=== PATIENT | female | born 1990 | race Asian ===

== ENCOUNTER 2016-03-05 13:02 | Outpatient (CLI) | payer BC, MEDICAID ==
[~2016-03-05] VITALS: Ht 5.1 cm; Wt 81.8 kg
[~2016-03-05 13:02] MED LIST: FOLIC ACID0.4 MG PO; MAGNESIUM100 MG
[2016-03-05 13:14] VITALS: BP 133/82; PULSE 83; TEMP 98.2
[2016-03-05 13:18] VITALS: BP 133/82; PULSE 83; TEMP 98.2
[2016-03-05 14:15] VITALS: BP 95/54; PULSE 71
[2016-03-06] MEDS ORDERED: PRENATAL1 TA7 PO (09:55)
== END 2016-03-05 14:36 | disposition home or self-care (01) ==
LOC: LDRO 13:02
DX: O47.1 False labor at or after 37 completed weeks of gestation (principal); Z3A.40 40 weeks gestation of pregnancy

== ENCOUNTER 2016-03-06 09:31 | Inpatient (IN) | payer BC, MEDICAID ==
[2016-03-06] VITALS (21 sets, daily range): BP systolic 91–136; BP diastolic 46–77; PULSE 66–99; TEMP 97.1–99.1
[~2016-03-06] VITALS: Ht 157.5 cm; Wt 80.5 kg
[2016-03-06] MEDS ORDERED: PRENATAL1 TA7 PO (09:55)
[2016-03-06 10:47] LABS: BASO % 0.2 % (0.0-2.0); EOS % 0.1 % (0-4.0); GRAN % 80.5 % (42.2-75.2); HEMATOCRIT 38.2 % (37.0-47.0); LYMPH # 1.4 (1.2-3.4); LYMPH % 14.5 % (20.0-51.0); MEAN CELL VOLUME 83 fl (80.0-100.0); MEAN CORPUSCULAR HEMOGLOBIN 28 pg (27.0-31.0); MEAN CORPUSCULAR HGB CONC 34 g/dl (33.0-37.0); MEAN PLATELET VOLUME 11.1 fl (7.4-10.4); MONO # 0.4 (0.1-0.6); MONO % 4.5 % (1.7-9.3); PLATELET COUNT 212 K/mm3 (130-400); WHITE BLOOD COUNT 9.9 K/mm3 (4.8-10.8)
[2016-03-07 00:20] VITALS: BP 111/73; PULSE 86; TEMP 98
[2016-03-07 04:10] VITALS: BP 94/53; PULSE 88; TEMP 97.7
[2016-03-07 07:44] VITALS: BP 104/64; PULSE 75; TEMP 97.6
[2016-03-07] MEDS ORDERED: MOTRIN 800800 MG/TAB PO (08:41)
[2016-03-07] MEDS ORDERED: PERCOCET 325 MG1 TA2 PO (08:42)
[2016-03-07 15:51] VITALS: BP 117/64; PULSE 91; TEMP 98.5
[2016-03-07 20:00] VITALS: BP 119/76; PULSE 86; TEMP 98.4
[2016-03-08 07:00] VITALS: BP 129/80; PULSE 75; TEMP 98.5
== END 2016-03-08 15:20 | disposition home or self-care (01) | DRG 766 ==
LOC: LDRO 09:31 → LDR 10:23 → OB 10:23
PROVIDERS: Obstetrics & Gynecology
PROC: 10D00Z1 Extraction of Products of Conception, Low, Open Approach (ICD-10-PCS; principal; 2016-03-06)
DX: O48.0 Post-term pregnancy (principal); O34.211 Maternal care for low transverse scar from previous cesarean delivery; N85.8 Other specified noninflammatory disorders of uterus; O77.0 Labor and delivery complicated by meconium in amniotic fluid; Z3A.40 40 weeks gestation of pregnancy; Z37.0 Single live birth
CPT/HCPCS: J0690; J1885; J2175; J2270; J2370; J2405; J2590; J7120